=== PATIENT | female | born 2005 | race Two or more races ===

== ENCOUNTER 2024-06-23 02:01 | Emergency (ER) | payer MEDICAID, SELFPAY ==
[2024-06-23] VITALS (7 sets, daily range): BP systolic 117–139; BP diastolic 54–76; PULSE 95–117; RESP 16–19; TEMP 36.8–39.1; O2SAT 96–99; BMI 31.8
--- NOTE | 2024-06-23 02:11 | XR_ITS ---
Examination: CT abdomen with intravenous contrast CT pelvis with intravenous contrast 2-D coronal reconstructions 2-D sagittal reconstructions Date and time of exam:June 23, 2024 0544 hrs. Indications: Abdominal pain nausea vomiting fever chills today. CTDI: vol (mGy) 12 DLP: (mGycm) 721 Technique: Multiple axial sections of the abdomen and pelvis have been obtained. 64 slice high-resolution scanner used. 3 mm axial sections have been obtained, post intravenous injection 60 cc [id number] 2-D sagittal, coronal reconstructions obtained. Low dose protocols were performed. One or more of the following dose reduction techniques were used; automated exposure control, adjustment of the mA and/or KV according to patient size, use of iterative reconstruction technique. Findings: No pneumonia clearly depicted No liver or splenic lesions No gallstones No pancreatic or adrenal mass No renal or ureteral calculi Aorta normal size Multiple lymph nodes in the right lower mesentery No pericecal inflammatory change Intrauterine device appears low in position Bladder intact Impression: No CT findings of appendicitis bowel obstruction or diverticulitis Recommend transvaginal pelvic sonography follow-up to confirm abnormally low position intrauterine device
--- NOTE | 2024-06-23 02:12 | EDRME_ITS ---
Rapid Medical Screening Exam [facility] Arrival date/time: 06/23/24 02:01 18F with history of endometriosis and appendectomy presents to ED with several days of N/V, lower ab pain, and fevers/chills. Patient denies dysuria, vaginal bleeding/discharge, and diarrhea. Chief Complaint: Abdominal Pain Vital signs: Vital Signs Temperature 99.6 F 06/23/24 02:06 Pulse Rate 117 H 06/23/24 02:06 Respiratory Rate 19 06/23/24 02:06 Blood Pressure 139/54 H 06/23/24 02:06 Pulse Oximetry (%) 96 06/23/24 02:06 Oxygen Delivery Method Room Air 06/23/24 02:06
[2024-06-23 03:42] LABS: Lactate (Lactic Acid) 1.3 mMol/L (0.4-2.0)
[2024-06-23 03:47] LABS: Basophils % (Auto) 0 % (0-2.5); Eosinophils # (Auto) 0.1 Thou/mm3 (0.0-0.5); Eosinophils % (Auto) 1 % (0-10); Hematocrit 31.1 % (36.0-46.0); Hemoglobin 9.6 g/dL (12.0-16.0); Immature Granulocytes % (Auto) 0 % (0-0); Immature Granulocytes Auto 0.03 Thou/mm3 (0.00-0.00); Lymphocytes # (Auto) 0.6 Thou/mm3 (1.0-4.8); Lymphocytes % (Auto) 6 % (10-50); Mean Corpuscular HGB Conc 30.9 g/dl (31.0-37.0); Mean Corpuscular Hemoglobin 21.9 pg (25.0-35.0); Mean Corpuscular Volume 71 fL (80-100); Monocytes # (Auto) 0.4 Thou/mm3 (0.0-0.8); Monocytes % (Auto) 4 % (0-12); Neutrophils # (Auto) 8.6 Thou/mm3 (1.8-7.7); Neutrophils % (Auto) 89 % (37-80); Nucleated Red Blood Cell % 0 /100 WBC (0); Platelet Count 252 Thou/mm3 (140-440); RDW Standard Deviation 46.5 fL (36.4-46.3); Red Blood Count 4.38 Miln/mm3 (4.00-5.20); White Blood Count 9.6 Thou/mm3 (4.5-11.0)
[2024-06-23 04:15] LABS: Collection Type, Urine Clean Catch; RBC,Urine 0 /hpf (0-3); WBC,Urine 0 /hpf (0-5)
[2024-06-23 04:25] LABS: Alanine Aminotransferase 19 U/L (10-49); Albumin, Serum 4.8 gm/dL (3.5-5.0); Albumin/Globulin Ratio 1.8 (1.2-2.2); Alkaline Phosphatase 83 U/L (46-116); Anion Gap 10 (7-16); Aspartate Amino Transferase 21 U/L (0-34); BUN/Creatinine Ratio 20 Ratio (12-20); Bilirubin,Total 0.5 mg/dL (0.3-1.2); Blood Urea Nitrogen 14 mg/dL (9-23); Calcium 9.2 mg/dL (8.3-10.6); Calcium (Corrected) 9.2 mg/dL (8.5-10.1); Carbon Dioxide 23.3 mMol/L (20.0-31.0); Chloride 104 mMol/L (98-107); Creatinine (Component) 0.7 mg/dL (0.6-1.3); Estimated Creatinine Clearance 129.7 mL/min (>60); Globulin 2.6 gm/dL (2.3-3.5); Glucose 95 mg/dL (74-106); Lipase 25 U/L (12-53); Osmolality,Calculated 274 (275-295); Potassium 4.3 mMol/L (3.4-5.1); Procalcitonin 0.05 ng/ml (0.0-0.49); Sodium 137 mMol/L (136-145); Total Protein 7.4 gm/dL (5.7-8.2); eGFR > 60 See Note
[2024-06-23 04:58] LABS: Bilirubin,Urine Negative (Negative); Blood,Urine Negative (Negative); Clarity,Urine Clear (Clear/Hazy); Color,Urine Yellow (Lt Yel-Yel); Culture Indicated,Urine Not Indicated; Glucose, Urine Negative (Negative); Ketones,Urine Negative (Negative); Leukocyte Esterase,Urine Negative (Negative); Nitrite,Urine Negative (Negative); Protein,Urine 1+ (Neg - Trace); Specific Gravity,Urine 1.039 (1.001-1.035); Squamous Epithelial Cell,Urine 4 /hpf (0-5); Urobilinogen,Urine Negative mg/dL (0.0-1.0)
[2024-06-23] MEDS: ACETAMINOPHEN 325 MG TABLET 1000 MG PO (05:28)
[2024-06-23 05:30] LABS: HCG Qualitative,Urine Negative
[2024-06-23] MEDS: ONDANSETRON INJ 2 MG/ML INJ 2 ML 4 MG IV (05:30)
[2024-06-23] MEDS: SODIUM CHLORIDE 0.9% 1000 ML 1,000 ML 999 ML IV (05:31)
--- NOTE | 2024-06-23 05:38 | PC.NURSE ---
Pt co feeling like she has a fever, body aches and nausea. pt has
--- NOTE | 2024-06-23 06:20 | XR_ITS ---
Examination: Abdomen sonogram, Limited Date and time of exam: June 23, 2024 0741 hrs. Indications: Epigastric pain nausea vomiting today Technique: Real-time kilpatrick scale transabdominal sonographic images of the upper abdomen obtained. Findings: Normal gallbladder Normal common bile duct 0.3 cm Pancreatic head 3.0 cm Liver 15.8 cm fatty liver no focal liver lesions Normal hepatopedal portal venous flow Patent IVC Impression: Normal gallbladder Normal common bile duct Fatty liver
--- NOTE | 2024-06-23 06:23 | PD.EDABDPN ---
ED Abdominal Pain RME/HPI General Chief Complaint: Abdominal Pain Stated complaint: ABD PAIN, N/V Time seen by provider: 06/23/24 05:03 Arrival date/time: 06/23/24 02:01 Limitations: no limitations RME / HPI RME / HPI narrative: 06/23/24 02:01 18F with history of endometriosis and appendectomy presents to ED with several days of N/V, lower ab pain, and fevers/chills. Patient denies dysuria, vaginal bleeding/discharge, and diarrhea. DR. KIT DAVIS ED EVALUATION: 18 year old female with history of endometriosis, s/p appendectomy presents to the ED for complaint of abdominal pain beginning at 8pm last night. Described as aching in sensation that is located most over RUQ and across mid abdomen. Accompanied by fevers, chills, nausea, and nonbloody vomiting. Reportedly had experienced similar pain before, in lesser severity, last occurring months ago. However, during that time did not have a fever. Denies cough, shortness of breath, diarrhea, or urinary symptoms. Related Data Home Medications ?Medication ?Instructions ?Recorded ?Confirmed L norgest/E estradiol-E estrad 1 tab PO QDAY 01/08/19 01/09/19 0.15 mg-30 mcg (84)/10 mcg(7) tabs,3mos (Camrese) iron 18 mg tablet 65 mg PO BID 01/08/19 01/09/19 Previous Rx's ?Medication ?Instructions ?Recorded ondansetron 4 mg disintegrating 4 mg PO Q6H PRN nausea and 06/23/24 tablet vomiting #14 tabs Allergies Allergy/AdvReac Type Severity Reaction Status Date / Time No Known Allergies Allergy Verified 06/23/24 02:02 Review of Systems Review of Systems Narrative Review of Systems: GEN: +fever, no chills, no weight loss EYES: No discharge, no visual changes, no pain HEENT: No ear pain, no congestion, no sore throat PULM: No shortness of breath, no cough, no congestion CV: No chest pain, no dyspnea on exertion, no palpitations GI: +nausea, +vomiting, no diarrhea, +pain, no constipation : No frequency, no urgency, no dysuria MUSC/SKEL: No joint pain, no back pain SKIN: No rash NEURO: No weakness, no headache Past Medical History Past Medical History REPRODUCTIVE: Positive Endometriosis HEMATOLOGIC: Positive Anemia PSYCHO/SOCIAL: Positive Depression (non diagnosed) and Anxiety (was taking zoloft but stopped) Family History FAMILY HISTORY: Positive Family Psychiatric Problems, Family Cardiac Disorders and Family Surgery Surgical History SURGICAL: Positive Abdominal Surgery Social History SMOKING STATUS: Never smoker SUBSTANCE USE: does not use ED Exam General Limitations: Present no limitations General appearance: Present alert and in no apparent distress Head Head exam: Present atraumatic, normocephalic and normal inspection Eye Eye exam: Present normal appearance, PERRL and EOMI ENT ENT exam: Present normal exam, normal oropharynx and mucous membranes moist Neck Neck exam: Present normal inspection, full ROM and trachea midline Chest Chest inspection: Present normal inspection and symmetric chest wall rise Respiratory Respiratory exam: Present normal lung sounds bilaterally Cardiovascular Cardiovascular exam: Present regular rate, normal rhythm and normal heart sounds Abdominal Exam Abdominal exam: Present soft, tenderness (Moderate RUQ and epigastric tenderness to palpation, +donis's sign ) and normal bowel sounds; Absent distention Extremities Exam Extremities exam: Present normal inspection and full ROM Back Exam Back exam: Present normal inspection and full ROM Neurological Exam Neurological exam: Present alert, oriented X3 and CN II-XII intact Psychiatric Psychiatric exam: Present normal affect and normal mood Skin Skin exam: Present warm, dry, intact and normal color Course Quality Measures none Orders Category Date Time Status CT Screening NOW Care 06/23/24 02:11 Completed Insert IV NOW Care 06/23/24 02:11 Completed Discharge Routine Discharge 06/23/24 08:[address] abdomen pelvis w con Stat Exams 06/23/24 02:11 Completed US gall bladder Stat Exams 06/23/24 06:20 Completed CBC Stat Lab 06/23/24 03:11 Completed CMP [Comprehensive Metabolic Panel] Stat Lab 06/23/24 03:11 Completed HCG Qualitative,Urine Stat Lab 06/23/24 04:00 Completed Lactate (Lactic Acid) Stat Lab 06/23/24 03:11 Completed Lipase Stat Lab 06/23/24 03:11 Completed Procalcitonin Stat Lab 06/23/24 03:11 Completed Urinalysis, C/S if Indicated Stat Lab 06/23/24 04:00 Completed Acetaminophen Tab [Tylenol Tab] Med 06/23/24 05:18 Discontinued 1,000 mg PO X1 ONE HYDROmorphone INJ [Dilaudid Inj] Med 06/23/24 06:30 Discontinued 0.5 mg IVP Q30MIN PRN Ondansetron Inj [Zofran Inj] Med 06/23/24 05:18 Discontinued 4 mg IV X1 ONE Sodium Chloride 0.9% 1000 ml [Ns] 1,000 ml Med 06/23/24 05:17 Discontinued IV 999 mls/hr Sodium Chloride 0.9% 1000 ml [Ns] 1,000 ml Med 06/23/24 05:38 Discontinued IV 999 mls/hr Reevaluation(s) Reevaluation #1: Patient remains clinically stable throughout the emergency department visit. We reviewed all the results, analysis, and treatment plans. Patient is amenable to discharge. Strict return precautions were outlined. Patient was discharged in stable condition. Time: 08:18 Vital Signs Vital signs: Vital Signs Temperature 99.6 F 06/23/24 02:06 Pulse Rate 117 H 06/23/24 02:06 Respiratory Rate 19 06/23/24 02:06 Blood Pressure 139/54 H 06/23/24 02:06 Pulse Oximetry (%) 96 06/23/24 02:06 Oxygen Delivery Method Room Air 06/23/24 02:06 Pulse ox is 96% on room air which is adequate. Abdominal Pain MDM MDM Narrative MDM Narrative:: Araseli Sandhu am scribing for and in the presence of Dr. Hutchinson. Patient data External records reviewed:: [facility] previous records (I reviewed ED visit on 12/25/2023) Clinical information provided by:: patient Social determinants that could affect healthcare access:: none Patient has the following chronic illnesses:: endometriosis, s/p appendectomy How is presenting disease/condition affected by chronic disease/condition?: uneffected by Evaluation data The following diagnostics were reviewed and interpreted by me:: lab results and radiology exam(s) Lab and/or radiology exams considered but not ordered:: None Interpretation Summary: Ordering Physician: Kris Arias PA-C Date of Service: 06/23/24 Procedure(s): CT abdomen pelvis w con Accession Number(s): [id number] cc: Jluis Lindsey MD; LEIF ELIZABETH; Kris Arias PA-C~ Examination: CT abdomen with intravenous contrast CT pelvis with intravenous contrast 2-D coronal reconstructions 2-D sagittal reconstructions Date and time of exam:June 23, 2024 0544 hrs. Indications: Abdominal pain nausea vomiting fever chills today. CTDI: vol (mGy) 12 DLP: (mGycm) 721 Technique: Multiple axial sections of the abdomen and pelvis have been obtained. 64 slice high-resolution scanner used. 3 mm axial sections have been obtained, post intravenous injection 60 cc [id number] 2-D sagittal, coronal reconstructions obtained. Low dose protocols were performed. One or more of the following dose reduction techniques were used; automated exposure control, adjustment of the mA and/or KV according to patient size, use of iterative reconstruction technique. Findings: No pneumonia clearly depicted No liver or splenic lesions No gallstones No pancreatic or adrenal mass No renal or ureteral calculi Aorta normal size Multiple lymph nodes in the right lower mesentery No pericecal inflammatory change Intrauterine device appears low in position Bladder intact Impression: No CT findings of appendicitis bowel obstruction or diverticulitis Recommend transvaginal pelvic sonography follow-up to confirm abnormally low position intrauterine device Dictated By: Jluis Lindsey MD Signed By: <Electronically signed by Jluis Lindsey MD in [place]> 06/23/24 0847 Ordering Physician: Michael Hutchinson MD Date of Service: 06/23/24 Procedure(s): US gall bladder Accession Number(s): [id number] cc: Jluis Lindsey MD; LEIF ELIZABETH; Michael Hutchinson MD~ Examination: Abdomen sonogram, Limited Date and time of exam: June 23, 2024 0741 hrs. Indications: Epigastric pain nausea vomiting today Technique: Real-time kilpatrick scale transabdominal sonographic images of the upper abdomen obtained. Findings: Normal gallbladder Normal common bile duct 0.3 cm Pancreatic head 3.0 cm Liver 15.8 cm fatty liver no focal liver lesions Normal hepatopedal portal venous flow Patent IVC Impression: Normal gallbladder Normal common bile duct Fatty liver Dictated By: Jluis Lindsey MD Signed By: <Electronically signed by Jluis Lindsey MD in [place]> 06/23/24 0844 Medications / Prescriptions Medications or Prescriptions considered but not ordered:: None Medication administrations:: Medication Administration History Discontinued Medications Acetaminophen (Acetaminophen 325 Mg Tablet) 1,000 mg PO X1 ONE Stop: 06/23/24 05:19 Last Admin: 06/23/24 05:28 Dose: 1,000 mg Documented By: JANEL Hydromorphone HCl (Hydromorphone Inj 2 Mg/Ml Vial) 0.5 mg IVP Q30MIN PRN PRN Reason: PAIN Sodium Chloride (Ns) 1,000 mls @ 999 mls/hr IV .Q1H1M ONE Stop: 06/23/24 06:17 Last Infusion: 06/23/24 08:15 Dose: Infused Documented By: Admin: 06/23/24 05:31 Dose: 999 mls/hr Documented By: JANEL Sodium Chloride (Ns) 1,000 mls @ 999 mls/hr IV .Q1H1M ONE Stop: 06/23/24 06:38 Ondansetron HCl (Ondansetron Inj 2 Mg/Ml Inj 2 Ml) 4 mg IV X1 ONE; Protocol Stop: 06/23/24 05:19 Last Admin: 06/23/24 05:30 Dose: 4 mg Documented By: JANEL See above Consultations Consultation(s) initiated? (list below): No Diagnosis Differential diagnosis abdominal pain: abdominal pain, calculus of kidney, gastroenteritis and other (Gallstones, gastritis ) Most likely diagnosis given after review of the tests above:: Vomiting Admission Indicated Admission indicated?: not indicated Admission Request Was there a request for admission?: No Disposition Plan Disposition Plan: Discharge Discharge Attestation Discharge Attestation: The patient and all family members were given an opportunity to ask questions and understood the discharge instructions. Discharge instructions specifically effects, indications for sooner follow up or return to the emergency department, and the expected course of current diagnosis. Patient condition: Stable Discharge Plan Plan Patient Disposition: HOME (Self Care) Disposition Comment: Stable for discharge Patient condition on transfer: Stable Prescriptions/Referrals Prescriptions/Med Rec: New ondansetron 4 mg tablet,disintegrating 4 mg PO Q6H PRN (Reason: nausea and vomiting) Qty: 14 0RF No Action iron 18 mg Tablet 65 mg PO BID L norgest/e.estradiol-e.estrad [Camrese] 0.15 mg-30 mcg (84)/10 mcg (7) Tablets,Dose Pack,3 Month 1 tab PO QDAY Referrals: Leif Elizabeth [Primary Care Provider] - In 1 week Problem List Clinical Impression: Vomiting Patient/Caregiver Discharge Instructions Discharge Activity: activity as tolerated Education Materials: ED Diet for Vomiting or ..., ED Vomiting (Adult) Additional Instructions: You should drink a lot of fluids and stay to soft foods and soups for the first day. You can also drink water but do not only drink water as when you vomit you lose salts as well. You do not want a water down your salts with replacing your fluids with only water. Take the Zofran as directed please. This is your antivomiting medicine If you are feeling sicker in any way or you fail to improve in the next day or 2 please return to the ER and we will help you Please follow-up with your primary care doctor within the next several days Today your CAT scan of your abdomen and pelvis and your ultrasound of your gallbladder were basically normal. Your blood work was also basically normal. You appear to be very healthy other than having what is probably a viral stomach flu Print Language: Amharic Stand Alone Forms: [employer] Info., Patient Portal Info Letter
--- NOTE | 2024-06-23 06:45 | PRELIM_ITS ---
CT scan of the abdomen and pelvis with intravenous contrast (axial sections with sagittal and coronal reformats) June 23, 2024 at 0542 hoursClinical History: Lower abdominal pain, nausea, vomiting a nd fevers/chills.Comparison: No prior study is available for comparison. Findings:Ricarda hazy opacitie s are seen in bilateral lower lobes. The liver, gallbladder, pancreas, spleen, kidneys and adrenals a re unremarkable.No evidence of bowel obstruction. The appendix is within normal limits (axial images 150-158/288). There is no mesenteric or retroperitoneal adenopathy.The urinary bladder is unremarkabl e. An IUCD is seen with features of malrotation. The ovaries are unremarkable. There is no free fluid or free air.The osseous structures are unremarkable.Impression:No evidence of bowel obstruction, fermin e air or abscess. Findings suggestive of IUCD malrotation.Ricarda hazy opacities in bilateral lower lob es the possibility of pneumonic infiltrates cannot be excluded. Recommend clinical correlation and fo llow-up. Report Electronically Signed By: Elizabeth Bullard 06/23/2024 6:45:15 AM [EST]
--- NOTE | 2024-06-23 07:10 | PC.NURSE ---
Pt. laying in bed in room 17 with her eyes closed, s/o at bedside.
--- NOTE | 2024-06-23 07:42 | PC.NURSE ---
US here to bed 17 to do pt.'s US.
--- NOTE | 2024-06-23 07:43 | PC.NURSE ---
Pt. laying in bed in room 17, pt. resting stating she feels better after the Tylenol, s/o at bedside, US in room, pt. states when she had the pain it was to the right upper quadrant, pt. denies any pain, nausea or vomiting at this time.
== END 2024-06-23 08:31 | disposition home or self-care (01) ==
PROVIDERS: Physician Assistant; Emergency Provider Emergency Medicine; PCP Family Medicine
DX: R11.2 Nausea with vomiting, unspecified (principal)
CPT/HCPCS: 36415; 74177; 76705; 80053; 81001; 81025; 83605; 83690; 84145; 85025; 96361; 96374; 99285; A4649; J2405; J7030; Q9967; A9270